=== PATIENT | male | born 1935 | race Caucasian/White ===

== ENCOUNTER → 2016-08-05 | Outpatient (CLI) | payer OTHER | LOC: PCVCCLINIC 15:00 | PROVIDERS: ATTEND Internal Medicine Cardiovascular Disease | DX: I48.92 Unspecified atrial flutter (principal); E78.1 Pure hyperglyceridemia; I49.5 Sick sinus syndrome; I25.10 Atherosclerotic heart disease of native coronary artery without angina pectoris; I10 Essential (primary) hypertension; Z95.0 Presence of cardiac pacemaker | CPT/HCPCS: 93005; G0463 ==

== ENCOUNTER → 2017-02-14 | Outpatient (CLI) | payer OTHER ==
--- NOTE | 2017-02-14 18:28 | PCVCIMAG ---
APPROVED REPORT Study performed: 02/14/2017 14:33:06 EXAM: Comprehensive 2D, Doppler, and color-flow Echocardiogram Status: routine BSA: 2.26 HR: 66 bpmBP: 114/80 mmHg Rhythm: NSR Other Information Study Quality: Adequate Indications Pacemaker CAD Aflutter 2D Dimensions LVEF(%): 47.12 (>50%) IVSd: 10.44 (7-11mm)LVOT Diam: 23.05 (18-24mm) LVDd: 59.07 mm LVPWs: 30.37 mm PWd: 8.83 (7-11mm)Ascending Ao: 30.27 (22-36mm) LVDs: 44.88 (25-40mm) Left Atrium: 35.81 (27-40mm) Aortic Root: 29.27 mm LV Single Plane 4CH: 41.52 % LV Single Plane 2CH: 48.82 %Frazier's LVEF: 45.17 % Biplane EF: 44.5 % Volumes Left Atrial Volume (Systole) Single Plane 4CH: 54.46 mLSingle Plane 2CH: 49.42 mL LA ESV Index: 23.00 mL/m2 Aortic Valve AoV Peak Ousmane.: 1.64 m/s AO Peak Gr.: 10.69 mmHgLVOT Max P.08 mmHg LVOT Max V: 1.01 m/s ADDY Vmax: 2.58 cm2 Mitral Valve E/A Ratio: 1.4 MV Decel. Time: 198.14 ms MV E Max Ousmane.: 0.89 m/s MV A Ousmane.: 0.63 m/s IVRT: 114.19 ms Pulmonary Valve PV Peak Gr.: 1.93 mmHg Pulmonary Vein P Vein S: 0.71 m/sP Vein A: 0.29 m/s P Vein D: 0.58 m/sP Vein A Dur.: 72.7 msec P Vein S/D Ratio: 1.22 Tricuspid Valve TR Peak Ousmane.: 3.13 m/s TR Peak Gr.: 39.20 mmHg Left Ventricle The left ventricle is normal size. There is normal LV segmental wall motion. There is normal left ventricular wall thickness. Left ventricular systolic function is normal. The left ventricular ejection fraction is within the normal range. LVEF is 45-50%. The left ventricular diastolic function is normal. Right Ventricle The right ventricle is normal size. The right ventricular systolic function is normal. Atria The left atrium size is normal. The right atrium size is normal. Aortic Valve The aortic valve is normal in structure. No aortic regurgitation is present. There is no aortic valvular stenosis. Mitral Valve The mitral valve is normal in structure. There is no mitral valve regurgitation noted. No evidence of mitral valve stenosis. Tricuspid Valve The tricuspid valve is normal in structure. Trace tricuspid regurgitation. Pulmonary artery pressure is 46mmhg. Pulmonic Valve The pulmonary valve is normal in structure. There is no pulmonic valvular regurgitation. Great Vessels The aortic root is normal in size. IVC is normal in size and collapses with >50% inspiration Pericardium There is no pericardial effusion. <Conclusion> The left ventricle is normal size. LVEF is 45-50%. The left ventricular diastolic function is normal. The right ventricle is normal size. The left atrium size is normal. The aortic valve is normal in structure. There is no mitral valve regurgitation noted. Trace tricuspid regurgitation. Pulmonary artery pressure is 46mmhg. There is no pericardial effusion.
== END | disposition home or self-care (01) ==
LOC: PCVCIMAG 14:02
PROVIDERS: ATTEND Internal Medicine Cardiovascular Disease
DX: I07.1 Rheumatic tricuspid insufficiency (principal); I25.10 Atherosclerotic heart disease of native coronary artery without angina pectoris; I49.5 Sick sinus syndrome; I25.2 Old myocardial infarction; I10 Essential (primary) hypertension; E78.00 Pure hypercholesterolemia, unspecified; I48.1 Persistent atrial fibrillation; I42.9 Cardiomyopathy, unspecified; Z95.0 Presence of cardiac pacemaker; Z98.1 Arthrodesis status; Z79.899 Other long term (current) drug therapy
CPT/HCPCS: 80061; 93280; 93306; G0463

== ENCOUNTER → 2018-01-04 | Outpatient (CLI) | payer OTHER | END | disposition home or self-care (01) | LOC: PCVCCLINIC 11:33 | PROVIDERS: ATTEND Internal Medicine Cardiovascular Disease | DX: I25.10 Atherosclerotic heart disease of native coronary artery without angina pectoris (principal); I49.5 Sick sinus syndrome; I48.91 Unspecified atrial fibrillation; E78.00 Pure hypercholesterolemia, unspecified; Z95.0 Presence of cardiac pacemaker; Z79.899 Other long term (current) drug therapy | CPT/HCPCS: 93005; 93280; G0463 ==

== ENCOUNTER → 2018-04-12 | Outpatient (CLI) | payer OTHER | END | disposition home or self-care (01) | LOC: PCVCCLINIC 14:39 | PROVIDERS: ATTEND Internal Medicine Cardiovascular Disease | DX: Z48.812 Encounter for surgical aftercare following surgery on the circulatory system (principal); Z95.0 Presence of cardiac pacemaker | CPT/HCPCS: 93280 ==

== ENCOUNTER → 2018-07-21 | Outpatient (CLI) | payer OTHER | END | disposition home or self-care (01) | LOC: PCVCCLINIC 14:26 | PROVIDERS: ATTEND Internal Medicine Cardiovascular Disease | DX: I48.0 Paroxysmal atrial fibrillation (principal); I25.10 Atherosclerotic heart disease of native coronary artery without angina pectoris; I10 Essential (primary) hypertension; E78.00 Pure hypercholesterolemia, unspecified; I49.5 Sick sinus syndrome; Z95.0 Presence of cardiac pacemaker | CPT/HCPCS: 93280; G0463 ==

== ENCOUNTER → 2019-01-22 | Outpatient (CLI) | payer OTHER ==
--- NOTE | 2019-01-22 15:32 | PCVCIMAG ---
APPROVED REPORT Study performed: 01/22/2019 12:55:08 EXAM: Comprehensive 2D, Doppler, and color-flow Echocardiogram Patient Location: Echo lab Status: routine BSA: 2.26 HR: 60 bpmBP: 118/76 mmHg Rhythm: Pacemaker Other Information Study Quality: Adequate Risk Factors: Cardiac Risk Factors: HTN, Hyperlipidemia Indications Pacemaker CAD PAF 2D Dimensions IVSd: 12.12 (7-11mm)LVOT Diam: 23.50 (18-24mm) LVDd: 55.47 mm PWd: 8.43 (7-11mm)Ascending Ao: 37.07 (22-36mm) LVDs: 42.08 (25-40mm) Left Atrium: 37.34 (27-40mm) Aortic Root: 37.15 mm LV Single Plane 4CH: 40.32 % LV Single Plane 2CH: 54.74 % Biplane EF: 49.6 % Volumes Left Atrial Volume (Systole) Single Plane 4CH: 50.41 mLSingle Plane 2CH: 53.06 mL LA ESV Index: 33.00 mL/m2 Aortic Valve AoV Peak Ousmane.: 1.99 m/s AO Peak Gr.: 15.83 mmHgLVOT Max P.82 mmHg AO Mean Gr.: 9.45 mmHg AO V2 Mean: 1.45 m/sLVOT Max V: 1.21 m/s AO V2 VTI: 43.64 cm ADDY Vmax: 2.63 cm2 Mitral Valve E/A Ratio: 0.6 MV Decel. Time: 333.56 ms MV E Max Ousmane.: 0.56 m/s MV A Ousmane.: 0.88 m/s IVRT: 176.47 ms TDI E/Lateral E': 7.00E/Medial E': 9.33 Medial E' Ousmane.: 0.06 m/s Lateral E' Ousmane.: 0.08 m/s Pulmonary Vein P Vein S: 0.68 m/sP Vein A: 0.27 m/s P Vein D: 0.44 m/sP Vein A Dur.: 124.6 msec P Vein S/D Ratio: 1.55 Tricuspid Valve TR Peak Ousmane.: 2.71 m/s TR Peak Gr.: 29.35 mmHg Left Ventricle The left ventricle is normal size. There is normal LV segmental wall motion. There is normal left ventricular wall thickness. Left ventricular systolic function is mildly decreased. LVEF is 45%. Right Ventricle The right ventricle is normal size. The right ventricular systolic function is normal. Pacemaker lead is present in the right ventricle. Atria The left atrium size is normal. Pacemaker lead is present in the right atrium. Aortic Valve The aortic valve is normal in structure. No aortic regurgitation is present. There is no aortic valvular stenosis. Mitral Valve The mitral valve is normal in structure. There is no mitral valve regurgitation noted. No evidence of mitral valve stenosis. Tricuspid Valve The tricuspid valve is normal in structure. Trace tricuspid regurgitation. Pulmonary artery pressure is 36mmHg. Pulmonic Valve The pulmonary valve is normal in structure. Trace pulmonic regurgitation. Great Vessels The aortic root is normal in size. IVC is normal in size and collapses >50% with inspiration. Pericardium There is no pericardial effusion. <Conclusion> The left ventricle is normal size. Left ventricular systolic function is mildly decreased. LVEF is 45%. The right ventricle is normal size. The left atrium size is normal. The aortic valve is normal in structure. Pacemaker lead is present in the right ventricle. There is no mitral valve regurgitation noted. Trace tricuspid regurgitation. Pulmonary artery pressure is 36mmHg. Trace tricuspid regurgitation. Pulmonary artery pressure is 36mmHg. Trace tricuspid regurgitation. Pulmonary artery pressure is 36mmHg. The aortic root is normal in size. There is no pericardial effusion.
== END | disposition home or self-care (01) ==
LOC: PCVCIMAG 12:44
PROVIDERS: ATTEND Internal Medicine Cardiovascular Disease
DX: I25.10 Atherosclerotic heart disease of native coronary artery without angina pectoris (principal); I48.0 Paroxysmal atrial fibrillation
CPT/HCPCS: 93306